=== PATIENT | female | born 1975 | race Caucasian/White ===

== ENCOUNTER 2020-08-17 08:59 | Emergency (ER) | payer OTHER, SELFPAY ==
[2020-08-17 09:10] VITALS: BP 150/81; PULSE 78; RESP 18; TEMP 36.2; O2SAT 99
--- NOTE | 2020-08-17 09:44 | ED.UPPEXIN ---
HPI - Extremity Injury (Upper) General Chief Complaint: Extremity Injury, Upper Stated Complaint: Right wrist pain Time Seen by Provider: 08/17/20 09:29 Source: patient and RN notes reviewed Mode of arrival: ambulatory Limitations: no limitations History of Present Illness HPI narrative: Patient presents today complaining of pain to her right wrist radiating intermittently to the right elbow x2+ years. Patient also reports intermittent numbness and tingling of the wrist as well as the fourth and fifth fingers, especially with overuse and if she sleeps on it wrong. Patient had an appointment for evaluation at the beginning of 2019, but this was canceled due to COVID-19 and has been rescheduled, but she is currently waiting on her medical card. She has been seen at [facility] in the past, and was diagnosed with carpal tunnel syndrome. She currently rates her pain 6/10. She had been wearing a brace, but has moved recently and lost it. She does take ibuprofen, which does provide relief while she is working. 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 MD complaint: injury to: right, elbow and wrist Related Data Allergies Allergy/AdvReac Type Severity Reaction Status Date / Time Penicillins Allergy Mild Unknown Verified 05/10/19 13:26 Review of Systems Review of Systems: Narrative: CONSTITUTIONAL: Denies body aches, fever, chills, or sweats. EYES: Denies visual changes, redness, or discharge. ENT: Denies rhinorrhea, congestion, sore throat, or otalgia. CARDIOVASCULAR: Denies chest pain, palpitations, or edema. RESPIRATORY: Denies cough or dyspnea. GASTROINTESTINAL: Denies abdominal pain, nausea, vomiting, or diarrhea. GENITOURINARY: Denies dysuria or hematuria. SKIN: Denies rash, itching, or wounds. MUSCULOSKELETAL: Denies back pain. + Right right wrist pain radiating to the right elbow NEUROLOGIC: Denies headache, or weakness. + Intermittent numbness and tingling to the right wrist and fourth and fifth fingers PSYCH: Denies depression or anxiety. PMFSH Comments At time of signature, I have reviewed and agree with nursing past medical, surgical, social and family history unless otherwise noted. Please see nursing chart for further information. There is no relevant family history pertinent to the presenting complaint Exam Narrative: Exam Narrative: GENERAL: Well-appearing, well-nourished, and in no acute distress. HEAD: Normocephalic, atraumatic. EYES: EOMI. No redness or drainage. Conjunctivae normal. ENT: Mucous membranes pink and moist. NECK: Normal AROM. CHEST: No respiratory distress. EXTREMITIES: Right wrist: Mild tenderness to anterior wrist. No tenderness to the dorsum. No edema, ecchymosis, erythema. Full range of motion with mild increased pain. Distal sensation intact. Capillary refill normal. Radial pulse normal. Tenderness at the ulnar nerve when palpated at the elbow. Palpation of this area causes pain and numbness and tingling to the fourth and fifth fingers. Full range of motion of the elbow, wrist, and all fingers. SKIN: Warm, dry, no rash. Capillary refill normal. Normal skin turgor. NEURO: No focal deficits. Alert and oriented x3. Gait steady. PSYCH: Normal affect. No signs of depression or anxiety. Course Vital Signs Vital signs: Vital Signs Temperature 97.1 F L 08/17/20 09:10 Pulse Rate 78 08/17/20 09:10 Respiratory Rate 18 08/17/20 09:10 Blood Pressure 150/81 H 08/17/20 09:10 Pulse Oximetry 99 08/17/20 09:10 Temperature 97.1 F L 08/17/20 09:10 Pulse Rate 78 08/17/20 09:10 Respiratory Rate 18 08/17/20 09:10 Blood Pressure 150/81 H 08/17/20 09:10 Pulse Oximetry 99 08/17/20 09:10 Reviewed. Pt has been instructed to follow up with her PCP regarding her elevated blood pressure today. MDM - Extremity Injury (Upper) Differential Diagnosis Differential diagnosis: Likely sprain and strain of wrist and other (Carpal tunnel, cubit
== END 2020-08-17 09:57 | disposition home or self-care (01) ==
PROVIDERS: Emergency Provider Nurse Practitioner
DX: G56.21 Lesion of ulnar nerve, right upper limb (principal)
CPT/HCPCS: 99212; G0463

== ENCOUNTER 2021-03-26 19:52 | Emergency (ER) | payer OTHER, SELFPAY ==
[2021-03-26 20:08] VITALS: BP 133/70; PULSE 79; RESP 18; TEMP 36.3; O2SAT 100
--- NOTE | 2021-03-26 21:34 | PC.NURSE ---
Pt reports this am her left eye was itchy, so she rubbed it. since then, she c/o left eye redness, tearing, intermittent itching, and some pain. On exam, pt's left eye conjunctive appears red, clear drainage from eye. pt's upper eyelid also appears red with edema present. pt denies photophobia, itching, double vision, and all other vision disturbances except for occasional blurriness.
[2021-03-26] MEDS: FLUORESCEIN SOD 1 MG/STRIP EACH EYE (21:48)
[2021-03-26] MEDS: TETRACAINE HCL 0.5% OPHTH SOLN 4 ML BTL 1 DROP EACH EYE (21:49)
--- NOTE | 2021-03-26 21:53 | ED.GENADULT ---
HPI - General Adult General Chief complaint: Eye Problems Stated complaint: left eye issues Time Seen by Provider: 03/26/21 21:38 History of Present Illness HPI narrative: Patient 45-year-old female presents emerged department with chief complaint of left eye pain. Patient reports she started having redness of her eye and irritation the patient states she felt as though there is something in her eye but did not cannot find anything and did not remember getting anything in her eye. Patient reports that she also had some redness of the eyelid as well. The patient reports he is allergic to penicillin denies any visual changes. Related Data Allergies Allergy/AdvReac Type Severity Reaction Status Date / Time Penicillins Allergy Mild Unknown Verified 03/26/21 20:11 Review of Systems Review of Systems: A 10 system review of systems was completed on the patient and is negative except for what is stated in the HPI. Nursing and ancillary documentation was reviewed. [facility] Past Medical History Medical History Diabetes HTN (hypertension) Lateral epicondylitis of elbow Right wrist pain Right wrist tendonitis Sleep apnea Vision abnormalities Wears glasses Surgical History Surgical History Hx of hysterectomy 2016 Family History Family History Unknown Asthma Hypertension Diabetes mellitus Cancer Social History Social History Smoking status: Never smoker Alcohol intake: current Alcohol use details: 2 per year Substance use: never Substance use type: does not use Gender identity (if verbalized by the patient): Female Exam Narrative: GENERAL: Well-appearing, well-nourished, and in no acute distress. HEAD: Normocephalic, atraumatic. EYES: PERRLA and EOMI. there is a small corneal abrasion present at about the 5 o'clock position there is mild erythema of the eyelid. ENT: Nares clear, no rhinorrhea or epistaxis. Mucous membranes moist. NECK: Supple. CHEST: Clear to auscultation. No respiratory distress. HEART: Regular rate and rhythm. No murmur heard. Normal peripheral pulses. ABDOMEN: Soft, nontender, nondistended, normal active bowel sounds. EXTREMITIES: Normal range of motion. No edema. SKIN: Warm, dry, no rash. NEURO: No focal deficits. Alert and oriented x3. PSYCH: Normal mood and affect. Course Vital Signs Vital signs: Vital Signs Temperature 36.3 C L 03/26/21 20:08 Pulse Rate 79 03/26/21 20:08 Respiratory Rate 18 03/26/21 20:08 Blood Pressure 133/70 03/26/21 20:08 Pulse Oximetry 100 03/26/21 20:08 Temperature 36.3 C L 03/26/21 20:08 Pulse Rate 79 03/26/21 20:08 Respiratory Rate 18 03/26/21 20:08 Blood Pressure 133/70 03/26/21 20:08 Pulse Oximetry 100 03/26/21 20:08 Medical Decision Making Vital Signs Vital Signs: Vital Signs Temperature 36.3 C L 03/26/21 20:08 Pulse Rate 79 03/26/21 20:08 Respiratory Rate 18 03/26/21 20:08 Blood Pressure 133/70 03/26/21 20:08 Pulse Oximetry 100 03/26/21 20:08 Temperature 36.3 C L 03/26/21 20:08 Pulse Rate 79 03/26/21 20:08 Respiratory Rate 18 03/26/21 20:08 Blood Pressure 133/70 03/26/21 20:08 Pulse Oximetry 100 03/26/21 20:08 Discharge Plan Discharge Clinical Impression: Cellulitis of face Abrasion, corneal Qualifiers: Encounter type: initial encounter Laterality: left Qualified Code(s): S05.02XA - Injury of conjunctiva and corneal abrasion without foreign body, left eye, initial encounter Conjunctivitis Qualifiers: Conjunctivitis type: acute Acute conjunctivitis type: unspecified Laterality: left Qualified Code(s): H10.32 - Unspecified acute conjunctivitis, left eye Patient Disposition: Home, Self-Care Conditio
[2021-03-26] MEDS: CLINDAMYCIN HCL 150 MG CAP 300 MG PO (22:20)
[2021-03-26] MEDS: GENTAMICIN SULFATE 0.3% OP SOL 5 ML BTL 2 DROP LEFT EYE (22:20)
[2021-03-26 22:31] VITALS: BP 144/94; PULSE 62; RESP 16; O2SAT 100
== END 2021-03-26 22:31 | disposition home or self-care (01) ==
PROVIDERS: Emergency Provider Emergency Medicine; PCP Family Medicine
DX: S05.02XA Injury of conjunctiva and corneal abrasion without foreign body, left eye, initial encounter (principal); H10.32 Unspecified acute conjunctivitis, left eye; E11.9 Type 2 diabetes mellitus without complications; I10 Essential (primary) hypertension; X58.XXXA Exposure to other specified factors, initial encounter
CPT/HCPCS: 99283; A9270

== ENCOUNTER 2021-09-05 05:42 | Emergency (ER) | payer OTHER, SELFPAY ==
--- NOTE | ~2021-09-05 | XR_ITS ---
EXAMINATION: XR knee RT 3V EXAM DATE: 09/05/2021 06:15 INDICATION: Lateral Right Knee Pain After Hearing Pop In Knee Area . TECHNIQUE: Three projections of the right knee. There is no prior study for comparison. FINDINGS: No evidence osteochondral defect or joint body in the right knee joint. There are no acut e fractures or dislocations identified. There is no subcutaneous gas. There is small joint effusion . There are no radiopaque foreign bodies. IMPRESSION: 1. XR knee RT 3V exam without acute osseous findings. 2. Small joint effusion. Reviewed, dictated and finalized at location A. TS TRAINER
[2021-09-05 05:45] VITALS: BP 152/85; PULSE 72; RESP 17; TEMP 36.3; O2SAT 100
--- NOTE | 2021-09-05 06:14 | ED.GENADULT ---
HPI - General Adult General Chief complaint: Extremity Injury, Lower Stated complaint: Right knee pain Time Seen by Provider: 09/05/21 06:09 History of Present Illness HPI narrative: Patient is a 46-year-old female presents the emergency department with chief complaint of right knee pain. Patient states about a month ago she fell and since then her right knee has been bothering her tonight she was walking up some steps felt a pop and has had worsening pain in her right knee. Patient denies any new trauma denies loss of consciousness denies shortness of breath denies chest pain. Related Data Allergies Allergy/AdvReac Type Severity Reaction Status Date / Time Penicillins Allergy Mild Unknown Verified 09/05/21 05:47 Review of Systems Review of Systems: A 10 system review of systems was completed on the patient and is negative except for what is stated in the HPI. Nursing and ancillary documentation was reviewed. [facility] Past Medical History Medical History Diabetes HTN (hypertension) Lateral epicondylitis of elbow Right wrist pain Right wrist tendonitis Sleep apnea Vision abnormalities Wears glasses Surgical History Surgical History Hx of hysterectomy 2016 Family History Family History Unknown Asthma Hypertension Diabetes mellitus Cancer Social History Social History Smoking status: Never smoker Alcohol intake: current Alcohol use details: 2 per year Substance use: never Substance use type: does not use Gender identity (if verbalized by the patient): Female Exam Narrative: GENERAL: Well-appearing, well-nourished, and in no acute distress. HEAD: Normocephalic, atraumatic. EYES: PERRLA and EOMI. ENT: Nares clear, no rhinorrhea or epistaxis. Mucous membranes moist. NECK: Supple. CHEST: Clear to auscultation. No respiratory distress. HEART: Regular rate and rhythm. No murmur heard. Normal peripheral pulses. ABDOMEN: Soft, nontender, nondistended, normal active bowel sounds. EXTREMITIES: Normal range of motion. No edema. Tenderness to palpation of the right knee there is no effusion present there is no erythema SKIN: Warm, dry, no rash. NEURO: No focal deficits. Alert and oriented x3. PSYCH: Normal mood and affect. Course Course Emergency Course: Plain film x-rays of the right knee showed no evidence of fracture Vital Signs Vital signs: Vital Signs Temperature 36.3 C L 09/05/21 05:45 Pulse Rate 72 09/05/21 05:45 Respiratory Rate 17 09/05/21 05:45 Blood Pressure 152/85 H 09/05/21 05:45 Pulse Oximetry 100 09/05/21 05:45 Temperature 36.3 C L 09/05/21 05:45 Pulse Rate 72 09/05/21 05:45 Respiratory Rate 17 09/05/21 05:45 Blood Pressure 152/85 H 09/05/21 05:45 Pulse Oximetry 100 09/05/21 05:45 Medical Decision Making Vital Signs Vital Signs: Vital Signs Temperature 36.3 C L 09/05/21 05:45 Pulse Rate 72 09/05/21 05:45 Respiratory Rate 17 09/05/21 05:45 Blood Pressure 152/85 H 09/05/21 05:45 Pulse Oximetry 100 09/05/21 05:45 Temperature 36.3 C L 09/05/21 05:45 Pulse Rate 72 09/05/21 05:45 Respiratory Rate 17 09/05/21 05:45 Blood Pressure 152/85 H 09/05/21 05:45 Pulse Oximetry 100 09/05/21 05:45 Discharge Plan Discharge Clinical Impression: Acute internal derangement of right knee Patient Disposition: Home, Self-Care Condition: Stable Instructions: Antibiotic Form, Knee Sprain (ED), Crutch Instructions (ED), Knee Pain (ED), Knee Immobilizer (ED) Additional Instructions: Please follow-up with your primary care physician in the next 1 to 2 weeks. If you continue to have pain your primary may need to order an MRI to look at the internal structures of your k
[2021-09-05] MEDS: MELOXICAM 7.5 MG TABLET 15 MG PO (07:04)
== END 2021-09-05 07:31 | disposition home or self-care (01) ==
PROVIDERS: Emergency Provider Emergency Medicine
DX: M23.91 Unspecified internal derangement of right knee (principal); S89.91XA Unspecified injury of right lower leg, initial encounter; E11.9 Type 2 diabetes mellitus without complications; I10 Essential (primary) hypertension; G47.30 Sleep apnea, unspecified; X50.9XXA Other and unspecified overexertion or strenuous movements or postures, initial encounter; Y93.01 Activity, walking, marching and hiking
CPT/HCPCS: 73562; 99283; A9270

== ENCOUNTER 2021-09-12 05:45 | Emergency (ER) | payer OTHER, SELFPAY ==
[2021-09-12 05:52] VITALS: BP 143/84; PULSE 74; RESP 16; TEMP 36.7; O2SAT 99
--- NOTE | 2021-09-12 06:09 | ED.EXTPRO ---
HPI - Extremity Problem General Chief complaint: Extremity Problem,Nontraumatic Stated complaint: Right knee pain Time Seen by Provider: 09/12/21 05:47 Source: patient History of Present Illness HPI Narrative: Patient presents to the ER with continued R knee pain. She fell approximally 1 month ago was initially doing well. She was walking downt he stairs 1 week ago and felt a pop, she reports pain since then. pain is achy constant, worse with moving her knee, no radiation. She was seen 1 week ago in this ER had plain films done that were negative. She was seen at another ER had a CT performed which was negative, she reports she has follow up with orthopedics tomorrow but was having continued pain so came to the ER for evaluation. She denies focal numbnes or weakness. Related Data Allergies Allergy/AdvReac Type Severity Reaction Status Date / Time Penicillins Allergy Mild Unknown Verified 09/12/21 06:15 Review of Systems Review of Systems: All systems reviewed & are unremarkable except as noted in HPI and below PMFSH Past Medical History Medical History Diabetes HTN (hypertension) Lateral epicondylitis of elbow Right wrist pain Right wrist tendonitis Sleep apnea Vision abnormalities Wears glasses Surgical History Surgical History Hx of hysterectomy 2016 Family History Family History Unknown Asthma Hypertension Diabetes mellitus Cancer Social History Social History Smoking status: Never smoker Alcohol intake: current Alcohol use details: 2 per year Substance use: never Substance use type: does not use Gender identity (if verbalized by the patient): Female Exam Const: General: no acute distress Orientation/consciousness: patient oriented x3 HENMT: Head: normal to inspection Eyes: Pupils: Equal, round and reactive pupils present Neck: Neck: normal visual inspection Resp: Effort & Inspection: normal respiratory effort Skin: General skin exam: normal color Rashes: no rashes Neuro: General: patient oriented x3 and moves all extremities Extrem: General: normal to inspection Other: mild diffuse pain no the R knee no obvious deformity no open or draining wounds, no Psych: Mental Status: mental status grossly normal Course Vital Signs Vital signs: Vital Signs Temperature 36.7 C 09/12/21 05:52 Pulse Rate 74 09/12/21 05:52 Respiratory Rate 16 09/12/21 05:52 Blood Pressure 143/84 H 09/12/21 05:52 Pulse Oximetry 99 09/12/21 05:52 Temperature 36.7 C 09/12/21 05:52 Pulse Rate 74 09/12/21 05:52 Respiratory Rate 16 09/12/21 05:52 Blood Pressure 143/84 H 09/12/21 05:52 Pulse Oximetry 99 09/12/21 05:52 MDM - Extremity (Nontraumatic) MDM Narrative Medical decision making narrative: Patient with continued knee pain, overall she looks clinically well, exam is reassuring, VSS. Prior imaging reviewed and was unremarkable. Acut injury was 1 week ago and patient already has specialty evaluation scheduled. Suspect soft tissue injury, low concern for fracture, dislocation, major neurovascular compromise. She remains appropriate for continued outpatin supportive therapies, pt comfortable with the outpatient plan. Discharge Plan Discharge Clinical Impression: Acute knee pain Qualifiers: Laterality: right Qualified Code(s): M25.561 - Pain in right knee Patient Disposition: Home, Self-Care Condition: Improved Instructions: Antibiotic Form, Knee Sprain (ED) Additional Instructions: Please follow up with your orthopedic doctor as scheduled Prescriptions: No Action gentamicin 0.3 % drops 2 drp LEFT EYE Q4H 7 Days Qty: 5 RF: 0 clindamycin HCl 300 mg capsule 300 mg PO Q6H 7 Days Qty: 28 RF: 0 meloxicam 15 mg tablet
[2021-09-12] MEDS: KETOROLAC 30 MG/ML VIAL (*BKC) IM (06:17)
== END 2021-09-12 06:59 | disposition home or self-care (01) ==
PROVIDERS: Emergency Provider Emergency Medicine
DX: M25.561 Pain in right knee (principal); E11.9 Type 2 diabetes mellitus without complications; I10 Essential (primary) hypertension; G47.30 Sleep apnea, unspecified; Z79.84 Long term (current) use of oral hypoglycemic drugs
CPT/HCPCS: 96372; 99283; J1885

== ENCOUNTER 2021-10-01 09:31 | Outpatient (CLI) | payer OTHER, SELFPAY ==
--- NOTE | ~2021-10-01 | MR_ITS ---
EXAMINATION: MR knee RT wo con DATE: 10/01/2021 10:29 INDICATION: Right knee pain TECHNIQUE: Magnetic resonance imaging (MRI) of the right knee was performed without intravenous contr ast. Sequences included coronal PD-weighted FSE, coronal PD-weighted FS FSE, sagittal T2-weighted FS E, sagittal PD-weighted FS FSE and axial PD weighted fat saturated FSE. COMPARISON: Radiographs dated 09/13/2021 FINDINGS: Medial compartment: Radial tear extending from the free edge to the periphery of the posterior horn near the posterior ro ot of the medial meniscus. Partial-thickness chondral ulceration along the anterior to central weight bearing medial femoral condyle which appears to involve less than 50% the cartilage thickness. Lateral compartment: Lateral meniscus is normal. Articular cartilage is normal. Patellofemoral compartment: Shallow chondral surface regularity along the lateral patellar facet and apical ridge. Deep chondral ulceration with mild underlying cortical irregularity at the inferior aspect of the lateral trochlea. Ligaments and tendons: Anterior and posterior cruciate ligaments are normal. There is thickening of the proximal medial lacy ateral ligament without surrounding edema consistent with mild scarring related to chronic sprain. Th e fibular collateral ligament complex is normal. The extensor mechanism is normal. The visualized med ial and lateral hamstring tendons as well as the iliotibial band are normal. Fluid: Physiologic amount of fluid in the joint space. No loose osteochondral bodies identified. Osseous/other: There is some red marrow reexpansion in the distal femoral metaphysis. No fracture or pathologic jorge alberto ow replacing process. IMPRESSION: 1. Radial tear near the posterior root of the medial meniscus. 2. 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 3. Scarring consistent with chronic sprain of the proximal medial collateral ligament. Reviewed, dictated and finalized at location A. ICATIONS WRITER IMPRESSION: 1. Radial tear near the posterior root of the medial meniscus. 2. Mild osteoarthritis with moderate grade chondromalacia in the medial compart ment and with moderate and high-grade chondromalacia at the lateral side of the patellofemoral compartment. 3. Scarring consistent with chronic sprain of the proximal medial collateral li cameron.
== END 2021-10-01 09:32 | disposition home or self-care (01) ==
PROVIDERS: Visit Provider Nurse Practitioner Family
DX: S83.241A Other tear of medial meniscus, current injury, right knee, initial encounter (principal); X58.XXXA Exposure to other specified factors, initial encounter
CPT/HCPCS: 73721

== ENCOUNTER 2022-01-13 08:16 | Outpatient (CLI) | payer OTHER, SELFPAY ==
--- NOTE | 2022-01-13 08:24 | ECG_ITS ---
Measurements Intervals [place] Rate: 49 P: 39 AK: 155 QRS: 16 QRSD: 93 T: 26 QT: 425 QTc: 386 Interpretive Statements SINUS BRADYCARDIA WITH SINUS ARRHYTHMIA BORDERLINE ECG NO PREVIOUS ECG AVAILABLE FOR COMPARISON Electronically Signed On 01-13-2022 16:58:13 CDT by Broderick Santos M.D.
[2022-01-13 08:55] LABS: Anion Gap 6 mmol/L (8-16); Blood Urea Nitrogen 14 mg/dL (7-17); Carbon Dioxide 29 mmol/L (22-30); Chloride 105 mmol/L (98-107); Estimated Glomerular Filt Rate > 60; Glucose 143 mg/dL (65-110); Potassium 4.8 mmol/L (3.4-5.0); Sodium 140 mmol/L (137-145)
== END 2022-01-13 08:17 | disposition home or self-care (01) ==
LOC: ANHSURGERY 08:19
PROVIDERS: Anesthesiology; Visit Provider Orthopaedic Surgery
DX: Z01.818 Encounter for other preprocedural examination (principal); E11.9 Type 2 diabetes mellitus without complications; R00.1 Bradycardia, unspecified
CPT/HCPCS: 36415; 80048; 93005

== ENCOUNTER 2022-01-19 01:38 | Day surgery (SDC) | payer OTHER, SELFPAY ==
[2022-01-11 11:59] VITALS: BMI 47.4
--- NOTE | 2022-01-11 12:05 | PC.NURSE ---
Report to the Outpatient Waiting Room, entrance under the green pavilion located off [facility], at time 6:00 on date 01/19/22. OR Time: 7:30. - You and your visitor will be asked a series of questions to screen for COVID 19 for your protection. - Only one visitor is allowed at this time. - The patient visitor is requested to leave or wait in car when not with patient. - A mask is required within the hospital. Patients may have clear liquids (water, carbonated beverages, clear teas, apple juice) until 3 hours prior to surgery (4:30) with a maximum of 20 ounces. - No food from midnight until time of surgery Take the following medications with a SIP of water the morning of surgery: LEVOTHYROXINE Medications to discontinue per physician: N/A Date to take last dose: N/A Please no make-up, nail israeli, hairspray, perfume, deodorant, or body powder the day of surgery. No jewelry (including any body piercings) or valuables the day of surgery, leave them at home. Please take a shower or bath the night before, or the morning of, surgery with an antibacterial soap. Wear comfortable, loose fitting clothing. - Jewelry must be removed prior to entering the operating room. Rings and piercings that are not removed may be cut off. - The hospital will not accept responsibility for valuables. - Please leave all valuables, including medications, at home the day of surgery. If you are going home after surgery, a licensed six horse hitch driver must drive you home. - NO public transportation without another adult. - We recommend that an adult stay with you for 24 hours following discharge. - We also recommend that you do not drive, make important decision, drink alcoholic beverages, or take any drugs that were not prescribed by your health care provider for at least 24 hours after your discharge time. Follow any additional instructions given to you from your surgeon. If you or anyone in your household have experienced Covid symptoms in the past week, please notify your surgeon or the nurse liaison at the phone number below for possible testing. Telephone instructions given to PT - CHELSEA MARTINEZ and asked if any additional questions and then verbalized understanding. Patient advised to call surgeon office or pre surgery nurse liaison [phone] if any additional questions.
--- NOTE | 2022-01-18 09:03 | WPDANESEPPF ---
Anes - Initial Pre Proc Eval Procedure: Operation Date: 01/19/22 07:30 Proposed Procedures p Right Knee Arthroscopy, Debridement of Meniscus, Synovectomy, Chondroplasty, Proceed As Indicated - Fred Lopez MD Date/Time: 01/18/22 09:03 Surgeon: Fred Lopez MD Pre Op Diagnosis: Rt Knee Pain, Rt Meniscus Tear, Chondromalacia, Patient Data Age: 46 Gender: F Height: 1.65 m Weight: 129.27 kg Allergies Allergy/AdvReac Type Severity Reaction Status Date / Time Penicillins Allergy Mild Unknown Verified 01/19/22 06:05 Home Medications Medication Instructions Recorded Confirmed Type atorvastatin 40 mg tablet 40 mg PO DAILY 09/13/21 01/11/22 History empagliflozin 25 mg tablet 25 mg PO DAILY 09/13/21 01/11/22 History (Jardiance) levothyroxine 75 mcg capsule 75 mcg PO DAILY 09/13/21 01/11/22 History metformin 500 mg tablet 500 mg PO TID 09/13/21 01/11/22 History hydrocodone 7.5 mg-acetaminophen 1 tablet PO Q6H PRN pain #30 tabs 01/18/22 Rx 325 mg tablet ondansetron 8 mg disintegrating 8 mg PO Q8H PRN nausea and 01/18/22 Rx tablet vomiting #10 tabs sennosides 8.6 mg-docusate sodium 1 tab-cap PO BID PRN constipation 01/18/22 Rx 50 mg tablet (Senna with Docusate #20 tabs Sodium) Patient hx anesthesia problems: none Family hx anesthesia problems: none Results Review: All pre-operative results and documents have been reviewed as part of the pre-operative evaluation. 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 Diabetes Excessive thirst HTN (hypertension) Lateral epicondylitis of elbow Light headedness Medial meniscus tear Morbid obesity with BMI of 45.0-49.9, adult Right knee pain Right wrist pain Right wrist tendonitis Sleep apnea Uterine cancer Vision abnormalities Vision changes Wears glasses Surgical History Surgical History Hx of hysterectomy 2016 Family History Family History Unknown Asthma Hypertension Diabetes mellitus Cancer Social History Social History Smoking status: Never smoker Alcohol intake: current Alcohol use details: 1/MONTH Substance use: never Substance use type: does not use Living arrangements: with family Gender identity (if verbalized by the patient): Female Spiritual care concerns: No Anes - Eval Final PreProcedure Day of Procedure 01/18/22 09:03 Patient weight: morbidly obese Heart: regular rate and rhythm Lungs: clear to auscultation and normal air movement Airway: Mallampati scale class II Neurological: alert and oriented Last oral intake: >/= 8 hours ASA classification: III Emergent: no Anesthetic plan: proceed Anesthesia type and monitoring: general LMA and ETT Results Review: All pre-operative results and documents have been reviewed as part of the pre-operative evaluation. Informed Consent: The patient's anesthetic plan and its attendant risks and benefits were discussed with the patient/family/POA. Questions were solicited and answers provided to the satisfaction of the patient/family/POA.
--- NOTE | 2022-01-18 14:05 | PM.IMHP ---
H&P: HPI History of Present Illness Date/Time: 01/18/22 14:05 Chief Complaint: Right knee pain Narrative: 46-year-old woman with right knee pain. Unrelieved with therapy, exercises, cortisone injection and bracing. MRI demonstrates meniscus tear as well as chondromalacia. Presents for operative treatment. Review of Systems Constitutional: Constitutional: Denies fever(s) Eyes: Eyes: Denies blurry vision ENT: Reports Normal hearing present Cardiovascular: Cardiovascular: Denies chest pain and Denies dyspnea Respiratory: Respiratory: Denies dyspnea and Denies wheezing Gastrointestinal: Gastrointestinal: Denies abdominal pain Genitourinary: Genitourinary: Denies urinary urgency Musculoskeletal: Musculoskeletal: Reports as per HPI and Denies numbness Integumentary/Breasts: Skin/Breast: Denies changing lesions and Denies sores Neurologic: Reports Normal hearing present, Denies behavioral changes, Denies confusion, Denies numbness and Denies convulsions Psychiatric: Psychiatric: Denies behavioral changes, Denies confusion and Denies hallucinations Endocrine: Endocrine: Denies heat intolerance Hematologic/Lymphatic: Hematologic/Lymphatic: Denies easy bleeding Allergic/Immunologic: Allergic/Immunologic: Denies wheezing PMFSH Past Medical History Medical History Bleeding nose BMI greater than 40 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 Diabetes Excessive thirst HTN (hypertension) Lateral epicondylitis of elbow Light headedness Medial meniscus tear Morbid obesity with BMI of 45.0-49.9, adult Right knee pain Right wrist pain Right wrist tendonitis Sleep apnea Uterine cancer Vision abnormalities Vision changes Wears glasses Surgical History Surgical History Hx of hysterectomy 2016 Family History Family History Unknown Asthma Hypertension Diabetes mellitus Cancer Social History Social History Smoking status: Never smoker Alcohol intake: current Alcohol use details: 1/MONTH Substance use: never Substance use type: does not use Gender identity (if verbalized by the patient): Female Spiritual care concerns: No Meds Home Medications and Allergies Home Medications Medication Instructions Recorded Confirmed Type atorvastatin 40 mg tablet 40 mg PO DAILY 09/13/21 01/11/22 History empagliflozin 25 mg tablet 25 mg PO DAILY 09/13/21 01/11/22 History (Jardiance) levothyroxine 75 mcg capsule 75 mcg PO DAILY 09/13/21 01/11/22 History metformin 500 mg tablet 500 mg PO TID 09/13/21 01/11/22 History Allergies Allergy/AdvReac Type Severity Reaction Status Date / Time Penicillins Allergy Mild Unknown Verified 01/11/22 11:57 Exam Const: General: No confusion Orientation/consciousness: patient oriented x3 and No confusion HENMT: Head: normal to inspection, normocephalic and atraumatic Eyes: Conjunctivae: conjunctivae normal Sclera: sclerae normal Neck: Neck: supple and nontender Chest: Chest palpation & inspection: normal inspection of the chest Resp: Effort & Inspection: normal respiratory effort and no audible wheezes Cardio: Rate: regular rate Rhythm: regular rhythm GI: GI Palp: No abdominal tenderness and Yes Soft to palpation : General: Yes deferred Skin: General skin exam: no rashes or lesions noted Neuro: General: patient oriented x3 and No confusion Extrem: General: capillary refill normal Right upper extremity: normal to inspection Left upper extremity: normal to inspection Right lower extremity: hip/thigh Details: normal to inspection and normal ROM; no tenderness, knee Details: normal to inspection, tenderness Location: of the medial joint line, swelling Location: of the pre-patellar area, abnormal RO
[2022-01-19] VITALS (8 sets, daily range): BP systolic 112–142; BP diastolic 68–92; PULSE 44–83; RESP 10–20; TEMP 36.4–36.6; O2SAT 94–100
[2022-01-19 06:37] LABS: Glucose Point of Care 144 mg/dl (65-105)
[2022-01-19] MEDS: ACETAMINOPHEN 500 MG TABLET 1000 MG PO (06:40)
[2022-01-19] MEDS: KETOROLAC 15 MG/ML VIAL (*BKC) IV PUSH (06:40)
[2022-01-19] MEDS: LACTATED RINGERS 1,000 ML 30 ML IV CONT (06:58)
--- NOTE | 2022-01-19 07:12 | WPDHPUPDATE1 ---
History and Physical Update Update Date/Time: 01/19/22 07:12 History and Physical has been reviewed, including an updated exam of the patient. There are NO changes in the patient's condition. Risks, benefits, and alternatives have been discussed and questions answered. Patient agrees to proceed with procedure.
[2022-01-19] MEDS: ceFAZolin 3 GM/D5W 100 ML 100 ML IVPB (07:28)
[2022-01-19] MEDS: BUPIVACAINE HCL 0.25% PF 30 ML VIAL 10 ML INFILTRATE (08:13)
--- NOTE | 2022-01-19 08:40 | P.OP_ITS ---
Procedure Note - Detailed Date of Procedure 01/19/22 Pre-op Diagnosis Rt Knee Pain, Rt Meniscus Tear, Chondromalacia, synovitis Post-op Diagnosis Same Procedure Performed Right knee arthroscopy with synovectomy including synovium, medial and lateral plica, superior patellar fat pad, partial medial meniscectomy, chondroplasty Surgeon Fred Lopez MD Anesthesia General Indications 46-year-old woman with right knee pain unrelieved with conservative measures including cortisone injection, physical therapy, home exercises and bracing. MRI demonstrates degenerative changes, synovitis and medial meniscus tear. Findings Right knee with complex tear posterior horn medial meniscus in the white-white zone, extensive synovium anterior fat pad medial lateral gutters, suprapatellar pouch, medial and lateral plica, grade 3 chondromalacia of patellofemoral articu lation and grade 3 chondromalacia medial femoral condyle. Description of Procedure Informed consent given by patient. Operative extremity marked in preoperative holding area. Patient received intravenous antibiotics. Patient brought to operating room and underwent general anesthetic by anesthesia team. Positioned supine on operating room table. Right leg placed into a posterior thigh leg finley. Foot of the table dropped to 90? and Left leg padded out of the field. Time-out performed confirming patient, site of surgery and plan. Right knee prepped and draped in usual sterile surgical fashion using ChloraPrep skin solution. Standard arthroscopic portals made by using a 11 blade knife for the anterior-lateral portal 1st. Capsule penetrated bluntly. Camera and inflow started. The operative findings noted. Intra-articular visualization used to position the anterior medial portal using 22 gauge spinal needle. A 11 blade knife used for the skin and blunt penetration of the capsule. 4.7 millimeter arthroscopic shaver introduced and partial medial meniscectomy of the loose and torn portion performed. Edge of meniscus completed with arthroscopic Wand. Arthroscopic Wand used to perform chondroplasty of the patellofemoral articulation and the medial femoral condyle. Shaver reintroduced and a synovectomy performed of the anterior fat pad and extensive synovium as well as medial and lateral plica. Bleeding points coagulated with Wand. Knee inspected, no loose pieces noted. 1 liter of irrigant infused and suction out. Arthroscopic cannulas removed. Skin closed with 4 nylon interrupted suture. Local anesthetic with 0.25% Marcaine. Sterile dressing applied. Patient awoken from anesthesia, extubated and taken to recovery room in stable condition. All sponge needle and instrument counts correct at the end of the case. Estimated Blood Loss 5 Complications None Condition Stable Disposition PACU
[2022-01-19 08:43] LABS: Glucose Point of Care 145 mg/dl (65-105)
[2022-01-19] MEDS: ONDANSETRON INJ 4 MG/2 ML VIAL IV PUSH (09:53)
== END 2022-01-19 10:45 | disposition home or self-care (01) ==
PROVIDERS: Visit Provider Orthopaedic Surgery
PROC: (CPT 29870; principal; 2022-01-19 07:30)
DX: S83.231A Complex tear of medial meniscus, current injury, right knee, initial encounter (principal); W10.9XXA Fall (on) (from) unspecified stairs and steps, initial encounter; M25.561 Pain in right knee; M22.41 Chondromalacia patellae, right knee; M65.861 Other synovitis and tenosynovitis, right lower leg; Z79.3 Long term (current) use of hormonal contraceptives; E03.9 Hypothyroidism, unspecified; E11.9 Type 2 diabetes mellitus without complications; I10 Essential (primary) hypertension; G47.30 Sleep apnea, unspecified; Z85.42 Personal history of malignant neoplasm of other parts of uterus; E66.01 Morbid (severe) obesity due to excess calories; Z68.42 Body mass index [BMI] 45.0-49.9, adult
CPT/HCPCS: 29876; 29881; 82948; A9270; J0690; J1100; J1885; J2250; J2405; J2704; J3010; J7120

== ENCOUNTER 2022-04-01 08:20 | Emergency (ER) | payer OTHER, SELFPAY ==
--- NOTE | ~2022-04-01 | XR_ITS ---
EXAMINATION: XR knee RT 3V DATE: 04/01/2022 08:55 INDICATION: Right knee pain. TECHNIQUE: 3 views of right knee were obtained. COMPARISON: Right knee radiograph 01/31/2022 FINDINGS: Bone alignment is normal. No fracture. There is mild tricompartmental osteoarthritis. There is a small knee joint effusion. IMPRESSION: 1. Mild right knee osteoarthritis. 2. Small right knee joint effusion. Reviewed, dictated and finalized at location A.
[2022-04-01 08:26] VITALS: BP 136/74; PULSE 63; RESP 18; TEMP 36.9; O2SAT 98
--- NOTE | 2022-04-01 09:06 | ED.LOWEXIN ---
HPI - Extremity Injury (Lower) General Chief Complaint: Extremity Injury, Lower Stated Complaint: right knee pain s/p surgery on 01/19 Time Seen by Provider: 04/01/22 08:32 History of Present Illness HPI Narrative: 46-year-old female presenting withright knee pain, she had had surgery on the knee 2 months ago and initially had been improving however recently started to have more pain, she states that she has been on her feet more than usual due to her new job. no focal numbness or weakness, she had tried to buy a knee support which helped but it does not stay on. Related Data Home Medications Medication Instructions Recorded Confirmed atorvastatin 40 mg tablet 40 mg PO DAILY 09/13/21 02/21/22 empagliflozin 25 mg tablet 25 mg PO DAILY 09/13/21 02/21/22 (Jardiance) levothyroxine 75 mcg capsule 75 mcg PO DAILY 09/13/21 02/21/22 metformin 500 mg tablet 500 mg PO TID 09/13/21 02/21/22 Allergies Allergy/AdvReac Type Severity Reaction Status Date / Time Penicillins Allergy Mild Unknown Verified 02/21/22 09:58 Review of Systems Review of Systems: CONST: No fever. HEENT: No sore throat C/V: No chest pain RESP: No cough GI: No nausea : No dysuria. M/S: R knee pain SKIN: No rash. 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 Diabetes Encounter for postoperative care Excessive thirst HTN (hypertension) Lateral epicondylitis of elbow Light headedness Medial meniscus tear Morbid obesity with BMI of 45.0-49.9, adult Right knee pain Right wrist pain Right wrist tendonitis Sleep apnea Uterine cancer Vision abnormalities Vision changes Wears glasses Surgical History Surgical History Hx of hysterectomy 2015 Family History Family History Unknown Asthma Hypertension Diabetes mellitus Cancer Social History Social History Smoking status: Never smoker Alcohol intake: current Alcohol use details: 1/MONTH Substance use: never Substance use type: does not use Gender identity (if verbalized by the patient): Female Spiritual care concerns: No Exam Narrative: EXAMINATION OF ORGAN SYSTEMS/BODY AREAS: Constitutional: Vital signs per nursing GENERAL:[No acute distress, non-toxic appearing.] HEAD: Normal with no signs of head trauma. EYES: EOMI, conjunctiva normal ENT: Hearing grossly intact LUNGS: Nonlabored breathing. HEART: [Regular rate and rhythm] ABD: [Soft], nondistended EXT: Normal range of motion, minimal tenderness palpation inferior medial right knee SKIN: [No rashes or lesions.] NEURO: [Alert and oriented x 3. No gross focal sensory or strength deficits.] PSYCH: Normal affect Course Vital Signs Vital signs: Vital Signs Temperature 98.5 F 04/01/22 08:26 Pulse Rate 63 04/01/22 08:26 Respiratory Rate 18 04/01/22 08:26 Blood Pressure 136/74 04/01/22 08:26 Pulse Oximetry 98 04/01/22 08:26 Oxygen Delivery Room Air 04/01/22 08:26 Temperature 98.5 F 04/01/22 08:26 Pulse Rate 63 04/01/22 08:26 Respiratory Rate 16 04/01/22 10:02 Blood Pressure 136/74 04/01/22 08:26 Pulse Oximetry 98 04/01/22 08:26 Oxygen Delivery Room Air 04/01/22 08:26 MDM - Extremity Injury (Lower) MDM Narrative Medical decision making narrative: 46-year-old male presenting with right knee pain status post surgery several months ago, vital signs stable, on exam she has full range of motion, right knee is neurovascularly intact, she is able to bear weight, x-rays performed here which does show arthritis and effusion, patient states that she is mostly looking for work note. This is provided as well as Michael wrap, she
[2022-04-01 10:02] VITALS: RESP 16
== END 2022-04-01 10:04 | disposition home or self-care (01) ==
PROVIDERS: Emergency Provider Emergency Medicine
DX: M25.561 Pain in right knee (principal); E11.9 Type 2 diabetes mellitus without complications; I10 Essential (primary) hypertension; M17.10 Unilateral primary osteoarthritis, unspecified knee; G47.30 Sleep apnea, unspecified; E66.01 Morbid (severe) obesity due to excess calories; Z68.42 Body mass index [BMI] 45.0-49.9, adult; Z85.42 Personal history of malignant neoplasm of other parts of uterus; Z90.710 Acquired absence of both cervix and uterus; Z79.84 Long term (current) use of oral hypoglycemic drugs
CPT/HCPCS: 73562; 99283

== ENCOUNTER 2023-05-26 17:57 | Emergency (ER) | payer OTHER, SELFPAY ==
--- NOTE | ~2023-05-26 | XR_ITS ---
EXAMINATION: [id number] DATE: 05/26/2023 18:29 INDICATION: Blunt trauma the right ribs TECHNIQUE: PA view of the chest and 3 views of the right ribs were obtained. COMPARISON: None FINDINGS: Nondisplaced fracture of the anterior right fifth and sixth ribs. The lungs are clear with no focal a irspace opacities, pulmonary edema, pleural effusion or pneumothorax. Cardiomediastinal silhouette is normal. Mild thoracic spondylosis. IMPRESSION: 1. Nondisplaced anterior right fifth and sixth rib fractures. 2. No pneumothorax or other acute cardiopulmonary disease. Reviewed, dictated and finalized at location A.
[2023-05-26 18:00] VITALS: BP 127/79; PULSE 62; RESP 16; TEMP 36.1; O2SAT 100
--- NOTE | 2023-05-26 18:07 | ED.GENADULT ---
HPI - General Adult General Chief complaint: Unspecified Stated complaint: chest pain/blunt trauma to chest Time Seen by Provider: 05/26/23 18:07 Source: patient Mode of arrival: ambulatory Limitations: no limitations History of Present Illness HPI narrative: 48 years old white female had about 15 pounds ice tube landed on the right chest from a height slightly less than 1 foot at work. No other injuries, woke up with soreness at the right chest worse with certain movement and deep breathing. She denies other injuries. Related Data Home Medications Medication Instructions Recorded Confirmed atorvastatin 40 mg tablet 40 mg PO DAILY 09/13/21 08/08/22 empagliflozin 25 mg tablet 25 mg PO DAILY 09/13/21 08/08/22 (Jardiance) levothyroxine 75 mcg capsule 75 mcg PO DAILY 09/13/21 08/08/22 metformin 500 mg tablet 500 mg PO TID 09/13/21 08/08/22 Allergies Allergy/AdvReac Type Severity Reaction Status Date / Time Penicillins Allergy Mild Unknown Verified 05/26/23 18:17 Review of Systems Review of Systems: All systems reviewed & are unremarkable except as noted in HPI and below PMFSH Past Medical History Medical History Bleeding nose BMI greater than 40 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 Diabetes Encounter for postoperative care Excessive thirst HTN (hypertension) Lateral epicondylitis of elbow Light headedness Medial meniscus tear Morbid obesity with BMI of 45.0-49.9, adult Right knee pain Right wrist pain Right wrist tendonitis Sleep apnea Uterine cancer Vision abnormalities Vision changes Wears glasses Surgical History Surgical History Hx of hysterectomy 2016 Family History Family History Unknown Asthma Hypertension Diabetes mellitus Cancer Social History Social History Smoking status: Never smoker Alcohol intake: current Alcohol use details: 1/MONTH Substance use: never Substance use type: does not use Living arrangements: with family Gender identity (if verbalized by the patient): Female Spiritual care concerns: No Exam Narrative: General appearance: Well-developed, well-nourished Skin: Normal color Head: Normocephalic, nontraumatic Eyes: Clear conjunctiva ENT: Oropharynx normal, ears normal, nose normal Neck: Supple, nontender Chest and respiratory: Airway patent, no respiratory distress, no accessory muscle use, right upper chest tenderness, no bruises, no swelling or rash Heart: Regular rate/rhythm Abdomen: Soft, nontender, no organomegaly, quiet bowel sounds Vascular: Normal peripheral pulses, normal capillary refill. Musculoskeletal: Normal range of motion, nontender back Neurologic: Alert and oriented ?3, REHABILITATION TECHNICIAN is normal as tested, no gross motor deficit Course Vital Signs Vital signs: Vital Signs Temperature 36.1 C L 05/26/23 18:00 Pulse Rate 62 05/26/23 18:00 Respiratory Rate 16 05/26/23 18:00 Blood Pressure 127/79 05/26/23 18:00 Pulse Oximetry 100 05/26/23 18:00 Oxygen Delivery Room Air 05/26/23 18:00 Temperature 36.1 C L 05/26/23 18:00 Pulse Rate 62 05/26/23 18:00 Respiratory Rate 16 05/26/23 18:00 Blood Pressure 127/79 05/26/23 18:00 Pulse Oximetry 100 05/26/23 18:00 Oxygen Delivery Room Air 05/26/23 18:00 Medical Decision Making [facility] Narrative Medical decision making narrative: Differential diagnosis include chest wall contusion, rib fracture Vital Signs Vital Signs: Vital Signs
[2023-05-26] MEDS: HYDROcodone/acetaminophen (*CRX) 5-325 MG TABLET 1 TAB PO (18:19)
[2023-05-26] MEDS: IBUPROFEN 600 MG TABLET PO (18:20)
== END 2023-05-26 19:33 | disposition home or self-care (01) ==
PROVIDERS: Emergency Provider Emergency Medicine
DX: S20.211A Contusion of right front wall of thorax, initial encounter (principal); S22.41XA Multiple fractures of ribs, right side, initial encounter for closed fracture; E11.9 Type 2 diabetes mellitus without complications; I10 Essential (primary) hypertension; E66.01 Morbid (severe) obesity due to excess calories; Z68.42 Body mass index [BMI] 45.0-49.9, adult; G47.30 Sleep apnea, unspecified; M17.9 Osteoarthritis of knee, unspecified; Z85.42 Personal history of malignant neoplasm of other parts of uterus; Z90.710 Acquired absence of both cervix and uterus; Z79.84 Long term (current) use of oral hypoglycemic drugs; W20.8XXA Other cause of strike by thrown, projected or falling object, initial encounter
CPT/HCPCS: 71101; 99283; A9270

== ENCOUNTER 2023-07-24 16:43 | Emergency (ER) | payer SELFPAY ==
--- NOTE | 2023-07-24 16:47 | ED.URI ---
HPI - URI/Sore Throat General Chief Complaint: Upper Respiratory Infection Stated Complaint: Sinus Time Seen by Provider: 07/24/23 16:50 Source: patient, RN notes reviewed and old records reviewed Mode of arrival: ambulatory Limitations: no limitations History of Present Illness HPI Narrative: 48-year-old female presents to the [facility] with complaints of a sinus congestion and reports fever, of 102 Has taken cold medicine and ibuprofen Symptoms started Sunday, 3 days ago. Reports exposure to influenza. Taken at home COVID test which she reports is negative. Onset (ago): day(s) (3) Related Data Home Medications Medication Instructions Recorded Confirmed atorvastatin 40 mg tablet 40 mg PO DAILY 09/13/21 08/08/22 empagliflozin 25 mg tablet 25 mg PO DAILY 09/13/21 08/08/22 (Jardiance) levothyroxine 75 mcg capsule 75 mcg PO DAILY 09/13/21 08/08/22 metformin 500 mg tablet 500 mg PO TID 09/13/21 08/08/22 Allergies Allergy/AdvReac Type Severity Reaction Status Date / Time Penicillins Allergy Mild Unknown Verified 07/24/23 16:51 Review of Systems Review of Systems: All systems reviewed & are unremarkable except as noted in HPI and below Constitutional: Constitutional: Reports no additional constitutional complaints Eyes: Eyes: Reports no additional eye complaints ENT: Reports as per HPI Cardiovascular: Cardiovascular: Reports no additional cardiovascular complaints, Denies chest pain and Denies dyspnea Respiratory: Respiratory: Reports no additional respiratory complaints, Denies chest congestion, Denies cough and Denies dyspnea Gastrointestinal: Gastrointestinal: Reports no additional gastrointestinal complaints, Denies abdominal pain, Denies nausea and Denies vomiting Musculoskeletal: Musculoskeletal: Reports no additional musculoskeletal complaints Integumentary/Breasts: Skin/Breast: Reports system reviewed and no additional complaints, except as docu Neurologic: Reports system reviewed and no additional complaints, except as documented Psychiatric: Psychiatric: Reports no additional psychiatric complaints Allergic/Immunologic: Allergic/Immunologic: Reports no additional allergic/immunologic complaints PMFSH Past Medical History Medical History Bleeding nose BMI greater than 40 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 Diabetes Encounter for postoperative care Excessive thirst HTN (hypertension) Lateral epicondylitis of elbow Light headedness Medial meniscus tear Morbid obesity with BMI of 45.0-49.9, adult Right knee pain Right wrist pain Right wrist tendonitis Sleep apnea Uterine cancer Vision abnormalities Vision changes Wears glasses Surgical History Surgical History Hx of hysterectomy 2016 Family History Family History Unknown Asthma Hypertension Diabetes mellitus Cancer Social History Social History Smoking status: Never smoker Alcohol intake: current Alcohol use details: 1/MONTH Substance use: never Substance use type: does not use Living arrangements: with family Gender identity (if verbalized by the patient): Female Spiritual care concerns: No Comments At the time of my signature, I reviewed and agree with the nursing past medical, surgical, social, and family history. There is no relevant family history pertinent to the patient complaint. Exam Const: General: cooperative, healthy appearing, comfortable, no acute distress, well developed, alert and well nourished Nutritional Appearance: well nourished and obese Orientation/consciousness: patient oriented x3 Limitations: no limitations HENMT: Head: normal to inspection Ears: hearing grossly normal bilaterally, external ears normal, TM's normal bilaterally, EAC's no
[2023-07-24 16:48] VITALS: BP 130/74; PULSE 83; RESP 16; TEMP 36.4; O2SAT 100
[2023-07-24 16:51] VITALS: BP 130/74; PULSE 83; RESP 16; TEMP 36.4; O2SAT 100
== END 2023-07-24 17:11 | disposition home or self-care (01) ==
PROVIDERS: Emergency Provider Nurse Practitioner
DX: J10.1 Influenza due to other identified influenza virus with other respiratory manifestations (principal); Z20.822 Contact with and (suspected) exposure to COVID-19; E11.9 Type 2 diabetes mellitus without complications; I10 Essential (primary) hypertension; E66.01 Morbid (severe) obesity due to excess calories; Z68.42 Body mass index [BMI] 45.0-49.9, adult
CPT/HCPCS: 87426; 87804; 99213; C9803; G0463

== ENCOUNTER 2025-04-05 17:20 | Emergency (ER) | payer BC, SELFPAY ==
[2025-04-05] VITALS (16 sets, daily range): BP systolic 132–145; BP diastolic 59–90; PULSE 59–88; RESP 13–21; TEMP 36.7; O2SAT 98–100
--- NOTE | ~2025-04-05 | XR_ITS ---
EXAMINATION: XR chest 1V portable 04/05/2025 18:24 INDICATION: Dizziness PROCEDURE: AP portable chest COMPARISON: No prior studies for comparison. FINDINGS: The lungs are clear. The cardiomediastinal silhouette is within normal limits. There are no pleural effusions. There is no pneumothorax suspected. IMPRESSION: 1: NO ACUTE CARDIOPULMONARY DISEASE. Reviewed, dictated and finalized at location O.
--- OUTSIDE RECORDS SUMMARY | 2025-04-05 17:22 | XMS_ITS | Clinical Summary ---
Author Organization [facility] Address [address] [place] [id number] Care Team Providers Care Adult Parole Officer Name Role Phone Mika Kwon MD Primary Care Provider [phone] Allergies Active Allergy Reactions Criticality Noted Date Comments Penicillins Unknown Medications metFORMIN XR (GLUCOPHAGE XR) 500 mg 24 hr tablet 10/08/2022 Active levothyroxine (SYNTHROID) 75 mcg tablet 10/08/2022 Active HYDROcodone-acet aminophen (NORCO) 5-325 mg per tablet Take 1 tablet by mouth every 6 (six) hours as needed 09/06/2021 Active atorvastatin (LIPITOR) 40 mg tablet 09/11/2022 Active Active Problems Problem Noted Date Diagnosed Date PLMD (periodic limb movement disorder) Assessment & Plan (01/01/2023 11:09 AM CDT): The patient states that her legs are occasionally restless. The patient would like to hold off on a dopamine agonist at this time. Arthralgia 01/01/2023 Assessment & Plan (01/01/2023 11:09 AM CDT): I have ordered an iron, ferritin, BUN and creatinine. LIVIA (obstructive sleep apnea) 10/09/2022 Assessment & Plan (01/01/2023 11:08 AM CDT): The patient is waiting on her CPAP that was ordered set at 7 cm water pressure. Assessment & Plan (10/09/2022 12:22 PM ARMOR SENIOR SERGEANT): I have ordered a nocturnal polysomnogram split night protocol if necessary, no MSLT. Hypersomnia 10/09/2022 Surgical follow-up care 10/20/2015 Malignant neoplasm of endometrium 10/20/2015 Morbid obesity 10/20/2015 Postsurgical menopause 10/20/2015 Resolved Problems Problem Noted Date Diagnosed Date Resolved Date Snoring 10/09/2022 01/01/2023 Social History Tobacco Use Types Packs/Day Years Used Date Smoking Tobacco: Never Personal Safety Answer Date Recorded Getting School Help Needed Not on file 10/25 Comments Unknown Sex and Gender Information Value Date Recorded Sex Assigned at Not on file Legal Sex Female 6:50 AM ARMOR SENIOR SERGEANT Gender Identity Not on file Sexual Orientation Not on file Obstetrics History Last Filed Vital Signs Vital Sign Reading Time Taken Comments Blood Pressure 120/84 01/01/2023 10:54 AM CDT Pulse 49 01/01/2023 10:54 AM CDT Temperature 35.7 C (96.2 F) 01/01/2023 10:54 AM CDT Respiratory Rate 18 01/01/2023 10:54 AM CDT Oxygen Saturation 98% 01/01/2023 10:54 AM CDT Inhaled Oxygen Concentration - - Weight 130.2 kg (287 lb) 01/01/2023 10:54 AM CDT Height 165.1 cm (5' 5) 01/01/2023 10:54 AM CDT Body Mass Index 47.76 01/01/2023 10:54 AM CDT Plan of Treatment Health Maintenance Due Date Last Done Comments Breast Cancer Screening-Mammogram 1977 Cervical Cancer Screening 1977 Colon Cancer Screening-Colonoscopy 1977 Depression Screening 1977 Hepatitis C Screening 1977 Hepatitis B Screening 1995 Regular Well Visit/Exam 18-64 1995 DTaP/Tdap/Td Vaccine (2 - Td or Tdap) 01/25/2018 01/26/2008 Covid-19 Vaccine ( - 2023-2 5 season) 2024 01/24/2021, 01/03/2021 Influenza Vaccine (#1) 2025 07/31/2017 Pneumococcal vaccine <65 Aged Out 10/20/2021 No longer eligible based on patient's age to complete this topic Insurance [facility] Care Teams Adult Parole Officer Relationship Specialty Start Date End Date Mika Kwon MD [address] [id number] PCP - General Family Medicine 04/11/21
--- OUTSIDE RECORDS SUMMARY | 2025-04-05 17:22 | XMS_ITS | Clinical Summary ---
Author Organization [facility] Address [address] [place] [address] Care Team Providers Care Energy Advisor Name Role Phone Arabella Sims MD Primary Care Provider [phone] Allergies Active Allergy Reactions Criticality Noted Date Comments Penicillin G Unknown 01/26/2024 Medications metFORMIN (GLUCOPHAGE) 500 MG tablet Take 1 tablet (500 mg total) by mouth 2 (two) times daily with meals. Active empagliflozin (JARDIANCE) 25 MG tablet Take 1 tablet (25 mg total) by mouth daily. Active atorvastatin (LIPITOR) 40 MG tablet Take 1 tablet (40 mg total) by mouth daily. Active levothyroxine (SYNTHROID) 137 MCG tablet Take 1 tablet (137 mcg total) by mouth daily. 30 tablet 01/29/2024 Active Blood Glucose Monitoring Suppl (D-CARE GLUCOMETER) w/Device KitIndications: Chest pain 1 Device by Does not apply route 2 (two) times daily. 1 kit 01/28/2024 Active insulin glargine (LANTUS) 100 UNIT/ML injection (VIAL) Inject 15 Units into the skin nightly at bedtime. 10 mL 2 01/28/2024 Active Lancets Ultra Fine MiscIndications :Chest pain 1 Box by Does not apply route 2 (two) times daily. 100 each 1 01/28/2024 Active Glucose Blood (BLOOD GLUCOSE TEST STRIPS 333) StripIndication s:Chest pain 1 Box by In Vitro route 2 (two) times daily. 500 strip 01/28/2024 Active Alcohol Swabs PadsIndications :Chest pain 1 Pad by Does not apply route 2 (two) times daily as needed. 120 each 1 01/28/2024 Active Active Problems Problem Noted Date Diagnosed Date Chest pain 01/26/2024 Social History Tobacco Use Types Packs/Day Years Used Date Smoking Tobacco: Never Smokeless Tobacco: Never Tobacco Cessation:Counseling Given: Not Answered [facility] Utilities Answer Date Recorded In the past 12 months has th e electric, gas, oil, or water company threatened to shut off services in your home? No 01/26/2024 Humiliation, Afraid, Rape, and Kick questionnair e Answer Date Recorded Within the last year, have y ou been afraid of your partner or ex-partner? No 01/26/2024 Within the last year, have y ou been humiliated or emotionally abused in other ways by your partner or ex-partner? No Within the last year, have y ou been kicked, hit, slapped, or otherwise physically hurt by your partner or ex-partner? No 01/26/2024 Within the last year, have y ou been raped or forced to have any kind of sexual activity by your partner or ex-partner? No 01/26/2024 AUDIT-C Answer Date Recorded Q1: How often do you have a drink containing alcohol? Never 01/26/2024 Q2: How many drinks containi ng alcohol do you have on a typical day when you are drinking? Patient does not drink Q3: How often do you have si x or more drinks on one occasion? Never 01/26/2024 Overall Financial Resource Strain (CARDIA) Answe r Date Recorded How hard is it for you to pa y for the very basics like food, housing, medical care, and heating? Somewhat hard 01/26/2024 Hunger Vital Sign Answer Date Recorded Within the past 12 months, y ou worried that your food would run out before you got the money to buy more. Often true 01/26/20 24 Within the past 12 months, t he food you bought just didn't last and you didn't have money to get more. Never true 01/26/2024 PRAPARE - Transportation Answer Date Re corded In the past 12 months, has l ack of transportation kept you from medical appointments or from getting medications? Yes 01/11 In the past 12 months, has l ack of transportation kept you from meetings, work, or from getting things needed for daily living? Yes 01/26/2024 Housing Stability Vital Sign Answer [place] e Recorded In the last 12 months, was t here a time when you were not able to pay the mortgage or rent on time? Yes 01/26/2024 In the past 12 months, how m any times have you moved where you were living? 0 01/26/2024 At any time in the past 12 m [facility], were you homeless or living in a prison (including now)? No 01/26/2024 Comments Unknown Sex and Gender Information Value Date Recorded Sex Assigned at Not on file Legal Sex Female 8:10 PM CDT Gender Identity Not on file Sexual Orientation Not on file Last Filed Vital Signs Vital Sign Reading Time Taken Comments Blood Pressure 134/82 01/28/2024 3:07 PM CDT Pulse 67 01/28/2024 3:07 PM CDT Temperature 36.9 C (98.4 F) 01/28/2024 3:07 PM CDT Respiratory Rate 13 01/28/2024 3:07 PM CDT Oxygen Saturation 99% 01/28/2024 3:07 PM CDT Inhaled Oxygen Concentration - - Weight 130.6 kg (287 lb 14.7 oz) 01/26/2024 2:30 AM CDT Height 165.1 cm (5' 5) 01/26/2024 2:30 AM CDT Body Mass Index 47.91 01/26/2024 2:30 AM CDT Plan of Treatment Health Maintenance Due Date Last Done Comments Cervical Cancer Screening Pa p Smear (Age 30 to 64) Every 3 Years 1977 Colorectal Cancer Screening Colonoscopy (10 Years) 1977 Annual Physical 1980 Hepatitis C 1995 Hepatitis B Vaccines (1 of 3 - 19+ 3-dose series) 1996 Cervical Cancer Screening Pa p with HPV Testing (Age 30 to 64) Every 5 Years 2007 Cervical Cancer Screening wi th HPV 2007 Mammogram Screening 2017 DTaP, Tdap and Td Vaccines ( 2 - Td or Tdap) 01/25/2018 01/26/2008 COVID-19 Vaccine (2023-2 5 season) 2024 01/24/2021, 01/03/2021 Meningococcal B Vaccine Aged Out No l onger eligible based on patient's age to complete this topic Meningococcal Vaccine Aged Out No nate coleen eligible based on patient's age to complete this topic Pneumococcal Vaccine: Pediatrics (0 to 5 Years) and At-Risk Patients (6 to 49 Years) Aged Out No longer eligible b ased on patient's age to complete this topic RSV Immunizations Under 20 Months Aged Out No longer eligible b ased on patient's age to complete this topic Advance Directives * Full Code (Latest Code Status on File) Date Activated Date Inactivated Comments 01/26/2024 5:52 AM 01/28/2024 8:01 PM Care Teams Energy Advisor Relationship Specialty Start Date End Date Arabella Sims MD PCP - General FAMILY PRACTICE 09/06/21
--- NOTE | 2025-04-05 17:56 | ECG_ITS ---
Test Date: 2025-04-05 18:32:48 Measurements Intervals [place] Rate: 65 P: 29 [place]: 153 QRS: 3 QRSD: 88 T: 14 QT: 384 QTc: 400 Interpretive Statements SINUS RHYTHM BORDERLINE R WAVE PROGRESSION, ANTERIOR LEADS BORDERLINE ECG No previous ECG available for comparison Electronically Signed On 04-05-2025 20:10:30 CDT by Rikki Márquez D.O.
--- NOTE | 2025-04-05 18:09 | ED.GENADULT ---
HPI - General Adult General Chief complaint: Dizziness Stated complaint: dizzy spells Time Seen by Provider: 04/05/25 17:47 History of Present Illness HPI narrative: Patient is a 49-year-old female who presents emergency department chief complaint. Showed reports the symptoms feel like lightheadedness and also reports that the room has been spinning the patient reports he has history of diabetes and reports that she has been out of medicine for several months and has not been checking her blood sugar. Patient reports that she is not having any chest pain or shortness of breath no vomiting or diarrhea does report that she has had a headache Related Data Home Medications ?Medication ?Instructions ?Recorded ?Confirmed ?Last Taken ?Type atorvastatin 40 mg tablet 40 mg PO DAILY 09/13/21 08/08/22 Unknown History empagliflozin 25 mg tablet 25 mg PO DAILY 09/13/21 08/08/22 Unknown History (Jardiance) levothyroxine 75 mcg capsule 75 mcg PO DAILY 09/13/21 08/08/22 Unknown History metformin 500 mg tablet 500 mg PO TID 09/13/21 08/08/22 Unknown History Allergies Allergy/AdvReac Type Severity Reaction Status Date / Time Penicillins Allergy Mild Unknown Verified 04/05/25 18:16 Review of Systems Review of Systems: A 10 system review of systems was completed on the patient and is negative except for what is stated in the HPI. Nursing and ancillary documentation was reviewed. 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 Excessive thirst Bleeding nose Vision changes Light headedness Medial meniscus tear Right knee pain Wears glasses Right wrist tendonitis Lateral epicondylitis of elbow Diabetes HTN (hypertension) Sleep apnea Vision abnormalities Right wrist pain Surgical History Surgical History Hx of hysterectomy 2016 Family History Family History Unknown Asthma Hypertension Diabetes mellitus Cancer Social History Social History Smoking status: Never smoker Alcohol intake: current Alcohol use details: 1/MONTH Substance use: never Substance use type: does not use Living arrangements: with family Gender identity (if verbalized by the patient): Female Spiritual care concerns: No Exam Narrative: GENERAL: Well-appearing, well-nourished, and in no acute distress. HEAD: Normocephalic, atraumatic. EYES: PERRLA and EOMI. ENT: Nares clear, no rhinorrhea or epistaxis. Mucous membranes moist. NECK: Supple. CHEST: Clear to auscultation. No respiratory distress. HEART: Regular rate and rhythm. No murmur heard. Normal peripheral pulses. ABDOMEN: Soft, nontender, nondistended, normal active bowel sounds. EXTREMITIES: Normal range of motion. No edema. SKIN: Warm, dry, no rash. NEURO: No focal deficits. Alert and oriented x3. PSYCH: Normal mood and affect. Course Vital Signs Vital signs: Vital Signs Pulse Oximetry 99 04/05/25 17:27 Temperature 36.7 C 04/05/25 17:57 Pulse Rate 59 L 04/05/25 19:17 Respiratory Rate 18 04/05/25 19:17 Blood Pressure 135/72 04/05/25 19:17 Pulse Oximetry 100 04/05/25 19:17 Oxygen Delivery Room Air 04/05/25 17:57 Medical Decision Making MDM Narrative Medical decision making narrative: Diagnosis includes vertigo, dehydration, hyperglycemia Laboratory studies were obtained on the patient showed patient the hyperglycemic with a blood sugar of 350 Electrolytes showed no anion gap acidosis Patient received 2 L of normal saline boluses and received Antivert Vital Signs Vital Signs: Vital Signs Pulse Oximetry 99 04/05/25 17:27 Temperature 36.7 C 04/05/25 17:57 Pulse Rate 59 L 04/05/25 19:17 Respiratory Rate 18 04/05/25 19:17 Blood Pressure 135/72 04/05/25 19:17 Pulse Oximetry 100 04/05/25 19:17 Oxygen Delivery Room Air 04/05/25 17:57 Lab Data 04/05/25 18:24 04/05/25 18:24 Labs: Lab Results 04/05/25 04/05/25 04/05/25 Range/Units 18:00 18:24 18:30 WBC 6.6 (4.5-10.0) K/mm3 RBC 4.64 (4.2-5.4) M/mm3 Hgb 13.3 (12.0-15.0) g/dL Hct 40.8 (37.0-47.0) % MCV 87.9 (80-100) fl MCH 28.7 (26-34) pg MCHC 32.6 (32-36) g/dl RDW 13.0 (11.5-14.5) % Plt Count 222 (150-375) k/mm3 MPV 11.4 H (7.4-10.4) fl Immature Gran % (Auto) 0.2 (0-0.5) % Neut % (Auto) 57.0 (45.5-73.1) % Lymph % (Auto) 34.8 (18.3-44.2) % Weston % (Auto) 6.1 (2.6-8.5) % Eos % (Auto) 1.1 (0-4.4) % Baso % (Auto) 0.8 (0.2-1.2) % Lymph # (Auto) 2.29 (0.9-3.2) K/mm3 Weston # (Auto) 0.4 (0.1-0.6) K/mm3 Eos # (Auto) 0.1 (0-0.3) K/mm3 Baso # (Auto) 0.1 (0.0-0.1) K/mm3 Abs Immat Gran (auto) 0.01 (0.00-0.031) K/mm3 Absolute Neuts (auto) 3.8 (1.3-6.7) K/mm3 Absolute Nucleated RBC 0.000 (0.0-0.012) K/mm3 Nucleated RBC % 0.0 (0.0-0.2) % Sodium 132 L (137-145) mmol/L Potassium 4.2 (3.4-5.0) mmol/L Chloride 101 (98-107) mmol/L Carbon Dioxide 24 (22-30) mmol/L Anion Gap 7 (4-12) mmol/L BUN 19 H (7-17) mg/dL Creatinine 0.70 (0.7-1.0) mg/dL Estim Creat Clear Calc 113 ml/min Estimated GFR > 60 (59 - ) Glucose 359 H (65-110) mg/dL POC Capillary Glucose 350 H (65-105) mg/dl Lactic Acid (0.7-2.0) mmol/L Calcium 8.9 (8.4-10.2) mg/dL Magnesium 2.0 (1.6-2.3) mg/dL Total Bilirubin 0.4 (0.2-1.3) mg/dL AST 26 (14-36) U/L ALT 28 (6-35) U/L Alkaline Phosphatase 111 (38-126) U/L Total Protein 6.7 (6.3-8.2) g/dL Albumin 3.9 (3.5-5.1) g/dL Urine Color Yellow (Yellow) Urine Appearance Clear (Clear) Urine pH 5.5 (5.0-9.0) Ur Specific [place] 1.038 H (1.001-1.035) Urine Protein Negative (Negative) mg/dL Urine Glucose (UA) 3+ H (Negative) mg/dL Urine Ketones Negative (Negative) mg/dL Ur Blood (Man) Negative (Negative) Urine Nitrate Negative (Negative) Urine Bilirubin Negative (Negative) Urine Urobilinogen 1.0 (<2.0) mg/dL Leukocyte Esterase Rfl Negative (Negative) MACKENZIE/UL 04/05/25 04/05/25 Range/Units 18:39 19:36 WBC (4.5-10.0) K/mm3 RBC (4.2-5.4) M/mm3 Hgb (12.0-15.0) g/dL Hct (37.0-47.0) % MCV (80-100) fl MCH (26-34) pg MCHC (32-36) g/dl RDW (11.5-14.5) % Plt Count (150-375) k/mm3 MPV (7.4-10.4) fl Immature Gran % (Auto) (0-0.5) % Neut % (Auto) (45.5-73.1) % Lymph % (Auto) (18.3-44.2) % Weston % (Auto) (2.6-8.5) % Eos % (Auto) (0-4.4) % Baso % (Auto) (0.2-1.2) % Lymph # (Auto) (0.9-3.2) K/mm3 Weston # (Auto) (0.1-0.6) K/mm3 Eos # (Auto) (0-0.3) K/mm3 Baso # (Auto) (0.0-0.1) K/mm3 Abs Immat Gran (auto) (0.00-0.031) K/mm3 Absolute Neuts (auto) (1.3-6.7) K/mm3 Absolute Nucleated RBC (0.0-0.012) K/mm3 Nucleated RBC % (0.0-0.2) % Sodium (137-145) mmol/L Potassium (3.4-5.0) mmol/L Chloride (98-107) mmol/L Carbon Dioxide (22-30) mmol/L Anion Gap (4-12) mmol/L BUN (7-17) mg/dL Creatinine (0.7-1.0) mg/dL Estim Creat Clear Calc ml/min Estimated GFR (59 - ) Glucose (65-110) mg/dL POC Capillary Glucose 314 H (65-105) mg/dl Lactic Acid 1.4 (0.7-2.0) mmol/L Calcium (8.4-10.2) mg/dL Magnesium (1.6-2.3) mg/dL Total Bilirubin (0.2-1.3) mg/dL AST (14-36) U/L ALT (6-35) U/L Alkaline Phosphatase (38-126) U/L Total Protein (6.3-8.2) g/dL Albumin (3.5-5.1) g/dL Urine Color (Yellow) Urine Appearance (Clear) Urine pH (5.0-9.0) Ur Specific [place] (1.001-1.035) Urine Protein (Negative) mg/dL Urine Glucose (UA) (Negative) mg/dL Urine Ketones (Negative) mg/dL Ur Blood (Man) (Negative) Urine Nitrate (Negative) Urine Bilirubin (Negative) Urine Urobilinogen (<2.0) mg/dL Leukocyte Esterase Rfl (Negative) MACKENZIE/UL Discharge Plan Discharge Clinical Impression: Dizziness, Hyperglycemia Patient Disposition: Home Condition: Stable Instructions: Antibiotic Form, Dizziness (ED), Diabetic Hyperglycemia (ED) Patient Language: Lao Prescriptions: New metformin 500 mg tablet 500 mg PO DAILY Qty: 60 0RF No Action Jardiance 25 mg tablet 25 mg PO DAILY metformin 500 mg tablet 500 mg PO TID levothyroxine 75 mcg capsule 75 mcg PO DAILY atorvastatin 40 mg tablet 40 mg PO DAILY Follow-up/Referrals: PHYSICIAN,GREEN MARKETING SPECIALIST [Primary Care Provider, Internal Medicine] Tae Fleming MD [Physician, Family Practice] Time of Disposition: 19:52
--- OUTSIDE RECORDS SUMMARY | 2025-04-05 18:10 | XMS_ITS | Clinical Summary ---
Author Organization [facility] Address [address] [place] [id number] Care Team Providers Care Mid Level Java Developer Name Role Phone Mika Kwon MD Primary Care Provider [phone] Allergies Active Allergy Reactions Criticality Noted Date [...] pressure. Assessment & Plan (10/09/2022 12:22 PM TIMBER MANAGEMENT TECHNICIAN): I have ordered a nocturnal polysomnogram split [...] on file Legal Sex Female 6:50 AM TIMBER MANAGEMENT TECHNICIAN Gender Identity Not on file Sexual Orientation [...] patient's age to complete this topic Insurance [facility] Care Teams Mid Level Java Developer Relationship Specialty Start Date End Date Mika Kwon MD [address] [address] PCP - General Family Medicine 04/11/21
--- OUTSIDE RECORDS SUMMARY | 2025-04-05 18:10 | XMS_ITS | Clinical Summary ---
Author Organization [facility] Address [address] [place] [address] Care Team Providers Care Print Binding Worker Name Role Phone Arabella Sims MD Primary Care Provider [phone] Allergies Active Allergy Reactions Criticality Noted Date [...] Tobacco: Never Tobacco Cessation:Counseling Given: Not Answered [facility] Utilities Answer Date Recorded In the [...] any time in the past 12 m [facility], were you homeless or living in a [facility] (including now)? No 01/26/2024 Comments Unknown Sex [...] 5:52 AM 01/28/2024 8:01 PM Care Teams Print Binding Worker Relationship Specialty Start Date End Date Arabella Sims MD PCP - General FAMILY PRACTICE 09/06/21
[2025-04-05] MEDS: SODIUM CHLORIDE 0.9% IV 1,000 ML 999 ML IV CONT ×2 (18:30)
[2025-04-05] MEDS: MECLIZINE HCL 25 MG TABLET PO (18:30)
[2025-04-05 18:37] LABS: Hematocrit 40.8 % (37.0-47.0); Hemoglobin 13.3 g/dL (12.0-15.0); Immature Granulocyte Percent A 0.2 % (0-0.5); Lymphocytes Absolute Auto 2.29 K/mm3 (0.9-3.2); Mean Corpuscular HGB Conc 32.6 g/dl (32-36); Mean Corpuscular Hemoglobin 28.7 pg (26-34); Mean Corpuscular Volume 87.9 fl (80-100); Nucleated Red Blood Cells Absolute Auto 0.000 K/mm3 (0.0-0.012); Nucleated Red Blood Cells Perc 0.0 % (0.0-0.2); Platelet Count Result 222 k/mm3 (150-375); Red Blood Count 4.64 M/mm3 (4.2-5.4); White Blood Count 6.6 K/mm3 (4.5-10.0)
[2025-04-05 18:39] LABS: Add Urine Microscopic? NO; Appearance Urine Clear (Clear); Glucose Urine UA 3+ mg/dL (Negative); Leukocyte Esterase Ur Negative LEU/UL (Negative); Nitrate Urine Negative (Negative); Specific Grav Ur 1.038 (1.001-1.035)
[2025-04-05 18:55] LABS: Alanine Aminotransferase 28 U/L (6-35); Albumin Level 3.9 g/dL (3.5-5.1); Alkaline Phosphatase 111 U/L (38-126); Anion Gap 7 mmol/L (4-12); Aspartate Amino Transferase 26 U/L (14-36); Bilirubin,Total 0.4 mg/dL (0.2-1.3); Blood Urea Nitrogen 19 mg/dL (7-17); Calcium 8.9 mg/dL (8.4-10.2); Carbon Dioxide 24 mmol/L (22-30); Chloride 101 mmol/L (98-107); Estimated CRCL calculation 113 ml/min; Estimated Glomerular Filt Rate > 60; Glucose 359 mg/dL (65-110); Magnesium 2.0 mg/dL (1.6-2.3); Potassium 4.2 mmol/L (3.4-5.0); Sodium 132 mmol/L (137-145); Total Protein 6.7 g/dL (6.3-8.2)
== END 2025-04-05 20:11 | disposition home or self-care (01) ==
PROVIDERS: Emergency Provider Emergency Medicine
DX: E11.65 Type 2 diabetes mellitus with hyperglycemia (principal); I10 Essential (primary) hypertension
CPT/HCPCS: 36415; 71045; 80053; 81003; 82948; 83605; 83735; 85025; 93005; 96360; 96361; 99283; A9270; J7030